=== PATIENT | female | born 1970 | race Caucasian/White ===

== ENCOUNTER 2018-01-16 12:01 | Emergency (ER) | payer MEDICAID ==
[~2018-01-16] VITALS: Ht 152.4 cm; Wt 90.7 kg
[~2018-01-16 12:01] MED LIST: CEPHALEXIN500 MG ORAL; TYLENOL EXTRA500 MG ORAL
[2018-01-16] MEDS ORDERED: NKM (12:17)
[2018-01-16 12:20] VITALS: BP 154/97
--- NOTE | 2018-01-16 12:27 | Emergency Room Report ---
History of Present Illness General Chief Complaint: Abdominal Pain Source: Patient Present Illness HPI Patient is a 47-year-old female presents today with epigastric abdominal pain that began 3 days ago. She states the burning and management in severity. She' s been taking Motrin with minimal relief. Sheassociated nausea. Denies any vomiting, diarrhea, fever, chills or associated symptoms. She has a history of gastritis and is supposed to see a GI specialist, which she has not yet seen. Denies any tobacco, alcohol or drug use. Allergies: Coded Allergies: No Known Allergies (Unverified , 08/19/16) Patient History Last Menstrual Period: 01/16/2018 Reviewed Nursing Documentation: PMH: Agreed; PSxH: Agreed Nursing Documentation-PMH Past Medical History: No History, Except For Hx Cardiac Problems: Yes - ovarian cyst removal Hx Hypertension: No Hx Pacemaker: No Hx Asthma: No Hx COPD: No Hx Diabetes: No Hx Cancer: No Hx Gastrointestinal Problems: Yes - gallstone removal Hx Dialysis: No History Of Psychiatric Problem: No Hx Neurological Problems: No Hx Cerebrovascular Accident: No Hx Seizures: No Review of Systems Gastrointestinal: Reports: abdominal pain All Other Systems: negative except mentioned in HPI Physical Exam Vital Signs Date Time Temp Pulse Resp B/P (MAP) Pulse Ox O2 Delivery O2 Flow Rate FiO2 01/16/18 12:10 98.3 82 16 154/97 100 Room Air 98.2 Sp02 EP Interpretation: reviewed, normal General Appearance: no apparent distress, alert, GCS 15, non-toxic Head: normocephalic, atraumatic Eyes: bilateral eye normal inspection, bilateral eye PERRL ENT: hearing grossly normal, normal pharynx, no angioedema, normal voice Neck: full range of motion, supple/symm/no masses Respiratory: chest non-tender, lungs clear, normal breath sounds, speaking full sentences Cardiovascular #1: regular rate, rhythm, no edema Cardiovascular #2: 2+ carotid (R), 2+ carotid (L), 2+ radial (R), 2+ radial (L) , 2+ dorsalis pedis (R), 2+ dorsalis pedis (L) Gastrointestinal: normal bowel sounds, soft, non-distended, no guarding, no rebound, other - mild epigastric tenderness palpation Rectal: deferred Genitourinary: normal inspection, no CVA tenderness Musculoskeletal: back normal, gait/station normal, normal range of motion, non- tender, calf tenderness Neurologic: alert, oriented x3, responsive, motor strength/tone normal, sensory intact, speech normal Psychiatric: judgement/insight normal, memory normal, mood/affect normal, no suicidal/homicidal ideation Reflexes: 3+ bicep (R), 3+ bicep (L), 3+ tricep (R), 3+ tricep (L), 3+ knee (R) , 3+ knee (L) Skin: normal color, no rash, warm/dry, well hydrated Lymphatic: no adenopathy Medical Decision Making PA Attestation Supervising physician is Dr. Figueroa Diagnostic Impression: Primary Impression: Epigastric abdominal pain ER Course Findings consistent with epigastric abdominal pain. Labs are within normal limits, no leukocytosis. LFTs are normal. Urine is negative for UTI. Ultrasound is within normal limits as well. Reevaluation at 1516, patient states pain is improving with medication. Abdomen soft and nontender. Patient is able to tolerate by mouth fluids. Patient's instructed to follow up with PCP for further evaluation and management. Patient understands and is agreeable with plan. Last Vital Signs Date Time Temp Pulse Resp B/P (MAP) Pulse Ox O2 Delivery O2 Flow Rate FiO2 01/16/18 14:37 70 18 118/75 95 Room Air 01/16/18 12:20 98.2 98.2 Last Vital Signs Date Time Temp Pulse Resp B/P (MAP) Pulse Ox O2 Delivery O2 Flow Rate FiO2 01/16/18 12:20 98.2 16 154/97 100 Room Air 98.2 01/16/18 12:10 82 Status: improved Disposition: HOME, SELF-CARE Condition: Stable Scripts Omeprazole (OMEPRAZOLE) 20 Mg Tablet. 20 MG ORAL DAILY, #30 TAB Prov: Radha Hong 01/16/18 Patient Instructions: Abdominal Pain, Adult Radha Hong Jan 16, 2018 12:27
[2018-01-16] MEDS ORDERED: GI Cocktail 120ml ORAL PRN (12:30)
[2018-01-16 12:44] LABS: APPEARANCE,URINE CLEAR; BILIRUBIN, URINE NEGATIVE (NEGATIVE); COLOR,URINE PALE YELLOW; GLUCOSE, URINE (UA) NEGATIVE (NEGATIVE); KETONES,URINE NEGATIVE (NEGATIVE); LEUKOCYTE ESTERASE ,URINE NEGATIVE (NEGATIVE); NITRITE,URINE NEGATIVE (NEGATIVE); PH,URINE 7 (4.5-8.0); PROTEIN,URINE NEGATIVE (NEGATIVE); UROBILINOGEN,URINE NORMAL MG/DL (0.0-1.0)
[2018-01-16 12:44] LABS: HEMATOCRIT 27.1 % (37.0-47.0); HEMOGLOBIN 7.8 G/DL (12.0-16.0); MEAN CORPUSCULAR VOLUME 66 FL (80-99); PLATELET COUNT 494 K/UL (150-450); RED BLOOD COUNT 4.13 M/UL (4.20-5.40); RED CELL DISTRIBUTION WIDTH 15.5 % (11.6-14.8); WHITE BLOOD COUNT 8.4 K/UL (4.8-10.8)
[2018-01-16] MEDS ORDERED: Lidocaine 2% Visc 15ml soln ORAL ONE (12:45)
[2018-01-16] MEDS ORDERED: Dicyclomine HCl 10mg/5ml oral soln ORAL ONE (12:45)
[2018-01-16 13:10] LABS: ANION GAP 10 mmol/L (5-15); BLOOD UREA NITROGEN 10 mg/dL (7-18); CALCIUM 9.3 MG/DL (8.5-10.1); CARBON DIOXIDE 26 MMOL/L (21-32); CHLORIDE 103 MMOL/L (98-107); CREATININE 0.7 MG/DL (0.55-1.30); POTASSIUM 4.1 MMOL/L (3.5-5.1); SODIUM 139 MMOL/L (136-145)
[2018-01-16 13:16] LABS: ALANINE AMINOTRANSFERASE 13 U/L (12-78); ALBUMIN 3.6 G/DL (3.4-5.0); ALBUMIN/GLOBULIN RATIO 0.7 (1.0-2.7); ALKALINE PHOSPHATASE 40 U/L (46-116); ASPARTATE AMINO TRANSFERASE 12 U/L (15-37); BILIRUBIN,TOTAL 0.4 MG/DL (0.2-1.0)
[2018-01-16 14:37] VITALS: BP 118/75
--- NOTE | 2018-01-16 14:53 | Diagnostic Imaging Report ---
Indication: Abdominal pain Technique: US ABD Complete Comparison: None Findings: Imaged portions of the pancreatic head are unremarkable in appearance. The body and tail are not well seen. Liver is normal in size. Hepatic contour is smooth. No definite focal hepatic mass lesion is appreciated sonographically. Imaged hepatic veins are patent. The portal vein appears patent with normal direction of flow. Gallbladder is not identified, likely surgically absent. Common bile duct measures 6.5 mm in diameter. No appreciable intrahepatic biliary ductal dilatation. The right kidney measures 10 cm in length. The left kidney measures 10.2 cm in length. No sonographically appreciable renal stones are identified. There is mild fullness of the renal collecting system which resolves post void. There is no evidence of significant post void residual bladder volume. There is an anechoic structure adjacent to the left aspect of the bladder noted on pre and postvoid imaging. Uncertain whether this is related to the bladder or possibly left ovarian etiology. Unremarkable in size. Visualized portions of the aorta and normal in caliber. No ascites. IMPRESSION: Gallbladder not identified, possibly surgically absent. Correlate with surgical history. Anechoic, likely cystic structure incidentally identified in the pelvis, along the left aspect of the bladder. This persists on post void imaging. This may potentially represent a left ovarian cyst. Clinical correlation recommended. Dedicated pelvic sonogram recommended for further evaluation. This may be obtained on an nonemergent basis.
[2018-01-16] MEDS ORDERED: OMEPRAZOLE20 M3 ORAL (15:18)
[2018-01-16 15:26] VITALS: BP 118/75
== END 2018-01-16 15:26 | disposition home or self-care (01) ==
LOC: EMR 12:56
DX: R10.13 Epigastric pain (principal)
CPT/HCPCS: 36415; 76700; 80053; 81003; 81025; 83690; 85007; 85025; 99284

== ENCOUNTER 2019-10-13 11:31 | Emergency (ER) | payer MEDICAID, OTHER ==
[~2019-10-13] VITALS: Ht 152.4 cm; Wt 83.9 kg
[~2019-10-13 11:31] MED LIST changes: +NKM; +OMEPRAZOLE20 M3 ORAL
--- NOTE | 2019-10-13 12:06 | NUR ---
ED Nurse Note: Pt walked into ED w/ c/o cough, congestion, MILLIGAN, earache and N&V for past 3 days. Pt is alert and orientedx4, ambulatory. Pt is set up on monitor. Pt is actively throwing up 2x since arrival. Pt is coughing. VSS.
[2019-10-13 12:21] VITALS: BP 155/80
--- NOTE | 2019-10-13 12:26 | Emergency Room Report ---
History of Present Illness General Chief Complaint: Flu Like Symptoms Source: Patient Present Illness HPI 48-year-old female comes today with complaints of body aches, cough with clear sputum production, bilateral earaches for the past 2 days, denies fever. She reports shortness of breath, no OCP use, no hemoptysis, no leg swelling, no recent antibiotic use or recent travel. He has tried [id number] symptomatic relief with only partial improvement. Allergies: Coded Allergies: No Known Allergies (Unverified , 08/19/16) Patient History Past Medical History: see triage record Last Menstrual Period: now Now: No Reviewed Nursing Documentation: PMH: Agreed; PSxH: Agreed Nursing Documentation-PMH Past Medical History: No History, Except For Hx Cardiac Problems: Yes - heart palps Hx Hypertension: No Hx Pacemaker: No Hx Asthma: No Hx COPD: No Hx Diabetes: No Hx Cancer: No Hx Gastrointestinal Problems: Yes - gallstone removal, ovarian cyst Hx Dialysis: No Hx Neurological Problems: No Hx Cerebrovascular Accident: No Hx Seizures: No Review of Systems All Other Systems: negative except mentioned in HPI Physical Exam Vital Signs Date Time Temp Pulse Resp B/P (MAP) Pulse Ox O2 Delivery O2 Flow Rate FiO2 10/13/19 11:46 98.8 94 22 158/81 (106) 98 Nasal Cannula Sp02 EP Interpretation: reviewed, normal General Appearance: no apparent distress, alert, non-toxic Head: normocephalic Eyes: bilateral eye normal inspection, bilateral eye PERRL, bilateral eye EOMI ENT: normal ENT inspection, hearing grossly normal, normal pharynx, no angioedema, normal voice, TMs + canals normal, uvula midline, moist mucus membranes, nasal congestion, other - Sinuses without bogginess or tenderness to percussion Neck: normal inspection, full range of motion, supple, supple/symm/no masses Respiratory: chest non-tender, lungs clear, normal breath sounds, chest symmetrical, palpation of chest normal Cardiovascular #1: normal peripheral pulses, regular rate, rhythm Cardiovascular #2: 2+ radial (R), 2+ radial (L) Gastrointestinal: normal inspection, non tender, soft, no mass, no guarding, no rebound Rectal: deferred Genitourinary: normal inspection, no CVA tenderness Musculoskeletal: back normal, normal range of motion, no calf tenderness, gait/ station normal, non-tender Neurologic: alert, motor strength/tone normal, sap hana developer III-XII nml as tested, sensory intact, responsive, speech normal Psychiatric: judgement/insight normal, memory normal, mood/affect normal Lymphatic: no adenopathy Medical Decision Making Diagnostic Impression: Primary Impression: Influenza-like symptoms ER Course Patient with 3 days of flulike syndrome, normal examination, will discharge with symptomatic relief Last Vital Signs Date Time Temp Pulse Resp B/P (MAP) Pulse Ox O2 Delivery O2 Flow Rate FiO2 10/13/19 11:46 98.8 94 22 158/81 (106) 98 Nasal Cannula Disposition: HOME, SELF-CARE Condition: Stable Referrals: [facility],REF (PCP) RODRIGO DAS M.D Oct 13, 2019 12:26
[2019-10-13] MEDS ORDERED: IBUPROFEN600 MG ORAL (12:28)
[2019-10-13] MEDS ORDERED: BENZONATATE200 MG ORAL (12:30)
[2019-10-13 12:41] VITALS: BP 133/71
--- NOTE | 2019-10-13 12:41 | NUR ---
ER DISCHARGE NOTE: Patient is cleared to be discharged per ERMD, pt is aox4, on room air, with stable vital signs. pt was given dc and prescription instructions to go to [facility], pt was able to verbalize understanding, pt id band and iv site removed without complications. pt is able to ambulate with steady gait. pt took all belongings.
== END 2019-10-13 12:43 | disposition home or self-care (01) ==
LOC: EMR 12:03
DX: R05 Cough (principal); Z90.49 Acquired absence of other specified parts of digestive tract; H92.03 Otalgia, bilateral; R06.02 Shortness of breath
CPT/HCPCS: 99282